=== PATIENT | female | born 1975 | race African-American/Black ===

== ENCOUNTER 2017-03-17 08:30 | Inpatient (IN) | payer OTHER ==
[2017-03-17 09:09] VITALS: BMI 29.1
--- NOTE | 2017-03-17 13:11 | HP ---
CIWA Score - CIWA Score Nausea/Vomitin-Mild Nausea/No Vomiting Muscle Tremors: 4-Moderate,w/Arms Extend Anxiety: 3 Agitation: 4-Moderately Restless Paroxysmal Sweats: 3 Orientation: 0-Oriented Tacttile Disturbances: 0-None Auditory Disturbances: 0-None Visual Disturbances: 0-None Headache: 1-Very Mild CIWA-Ar Total Score: 16 Admission ROS BHS - HPI Chief Complaint: I dont want to drink anymore and need to stop. My family is tired and I need to changes Allergies/Adverse Reactions: Allergies Allergy/AdvReac Type Severity Reaction Status Date / Time Penicillins Allergy Intermediate Verified 03/17/17 09:47 eggs Allergy Intermediate Difficulty Uncoded 03/17/17 09:47 Breathing History of Present Illness: pt is a 41yr old female with a history of alcohol dependence seeking detox for treatment. Exam Limitations: No Limitations - Ebola screening Have you traveled outside of the country in the last 21 days: No Have you had contact with anyone from an Ebola affected area: No Have you been sick,other than usual withdrawal symptoms: No Do you have a fever: No - Review of Systems Constitutional: Chills, Diaphoresis, Night Sweats, Changes in sleep EENT: reports: Tearing, Nose Congestion Respiratory: reports: No Symptoms reported Cardiac: reports: Syncope (last blackout a week ago) GI: reports: Poor Fluid Intake, Indigestion : reports: No Symptoms Reported Musculoskeletal: reports: Back Pain Integumentary: reports: Flushing, Sweating, Other (pt has a h/o dry skin eczema. ) Neuro: reports: Headache, Tingling, Tremors Endocrine: reports: Flushing, Intolerance to Cold, Intolerance to Heat Hematology: reports: No Symptoms Reported Psychiatric: reports: Judgement Intact, Mood/Affect Appropiate, Orientated x3, Agitated, Anxious Other Systems: Reviewed and Negative Patient History - Patient Medical History Hx Anemia: No Hx Asthma: Yes Hx Chronic Obstructive Pulmonary Disease (COPD): No Hx Cancer: No Hx Cardiac Disorders: No Hx Congestive Heart Failure: No Hx Hypertension: No Hx Hypercholesterolemia: No Hx Pacemaker: No HX Cerebrovascular Accident: No Hx Seizures: No Hx Dementia: No Hx Diabetes: No Hx Gastrointestinal Disorders: No Hx Liver Disease: No Hx Genitourinary Disorders: No Hx Sexually Transmitted Disorders: No Hx Renal Disease (ESRD): No Hx Thyroid Disease: No Hx Human Immunodeficiency Virus (HIV): No (negative) Hx Hepatitis C: No (negative) Hx Depression: Yes Hx Suicide Attempt: Yes (at age 14;denies any S/H ideation today) Hx Bipolar Disorder: No Hx Schizophrenia: No - Patient Surgical History Past Surgical History: No Other Surgical History: fibroid removed 03/2014/partial hysterectomy - PPD History Previous Implant?: Yes Documented Results: Negative w/o proof Implanted On Prior [facility] Admission?: No PPD to be Administered?: Yes - Reproductive History Patient is a Female of Child Bearing Age (11 -55 yrs old): No LMP comment: 2013 Patient : No - Smoking Cessation Smoking history: Current every day smoker Have you smoked in the past 12 months: Yes Aproximately how many cigarettes per day: 2 Hx Chewing Tobacco Use: No Initiated information on smoking cessation: Yes 'Breaking Loose' booklet given: 03/17/17 - Substance & Tx. History Hx Alcohol Use: Yes Hx Substance Use: Yes Substance Use Type: Alcohol, Marijuana Hx Substance Use Treatment: No - Substances Abused Alcohol Route: Oral Amount used: vodka(1-2 pints) Age of first use: 11 Date of Last Use: 03/16/17 Marijuana/Hashish Route: Inhalation Frequency: Daily Amount used: $250 Age of first use: 17 Date of Last Use: 02/24/17 Family Disease History - Family Disease History Family Disease History: Diabetes: Grandparent (dialysis ), Other: Mother (alcohol dependence), Brother (alcohol/cocaine dependence) Admission Physical Exam S - Vital Signs Vital Signs: Vital Signs - 24 hr 03/17/17 09:06 Temperature 98.3 F Pulse Rate 90 Respiratory 18 Rate Blood Pressure 130/96 - Physical General Appearance: Yes: Appropriately Dressed, Moderate Distress, Tremorous, Irritable, Sweating, Anxious HEENTM: Yes: Hearing grossly Normal, Normocephalic, Normal Voice Respiratory: Yes: Lungs Clear, Normal Breath Sounds, No Respiratory Distress Neck: Yes: No masses,lesions,Nodules Breast: Yes: Within Normal Limits Cardiology: Yes: Regular Rhythm, Regular Rate, S1, S2 Abdominal: Yes: Normal Bowel Sounds, Non Tender, Soft Genitourinary: Yes: Within Normal Limits Back: Yes: Normal Inspection Musculoskeletal: Yes: full range of Motion, Back pain Extremities: Yes: Normal Capillary Refill, Normal Inspection, Tremors Neurological: Yes: Fully Oriented, Alert, Normal Response Integumentary: Yes: Normal Color, Diaphoresis Lymphatic: Yes: Within Normal Limits - Diagnostic (1) Alcohol dependence with uncomplicated withdrawal Current Visit: Yes Status: Chronic (2) Asthma Current Visit: Yes Status: Chronic Qualifiers: Asthma severity: mild intermittent Asthma complication type: uncomplicated Qualified Code(s): J45.20 - Mild intermittent asthma, uncomplicated (3) Eczema Current Visit: Yes Status: Chronic Qualifiers: Eczema type: unspecified Qualified Code(s): L30.9 - Dermatitis, unspecified Cleared for Admission S - Detox or Rehab [facility] Level of Care: Medically Managed Detox Regimen/Protocol: Librium S Breath Alcohol Content Breath Alcohol Content: 0 Urine Pregancy Test - Result Urine Test Results: Negative- NO Line Present Urine Drug Screen - Results Drug Screen Negative: No Urine Drug Screen Results: THC-Marijuana
[2017-03-17] MEDS ORDERED: hydrOXYzine PAMOATE 50 MG CAPSULE (FP) PO PRN (13:19)
[2017-03-17] MEDS ORDERED: ACETAMINOPHEN 325 MG TABLET (FP) PO PRN (13:19)
[2017-03-17] MEDS ORDERED: guaiFENesin/D-METHORPHAN HB 10 ML UNIT-DOSE CUPS PO PRN (13:19)
[2017-03-17] MEDS ORDERED: IBUPROFEN 400 MG TABLET (FP) PO PRN (13:19)
[2017-03-17] MEDS ORDERED: NICOTINE POLACRILEX 4 MG GUM BC PRN (13:19)
[2017-03-17] MEDS ORDERED: MAGNESIUM CITRATE 300 ML BOTTLE PO PRN (13:19)
[2017-03-17] MEDS ORDERED: chlordiazePOXIDE HCL 25 MG CAPSULE PO PRN (13:19)
[2017-03-17] MEDS ORDERED: MAG HYDROX/AL HYDROX/SIMETH 30 ML UNIT-DOSE CUP PO PRN (13:19)
[2017-03-17] MEDS ORDERED: MENTHOL/PHENOL 1 EACH UD MM PRN (13:19)
[2017-03-17] MEDS ORDERED: MAGNESIUM HYDROX 2400MG/30ML ORAL SUSPENSION 30 ML CUP PO PRN (13:19)
[2017-03-17] MEDS ORDERED: diphenhydrAMINE HCL 50 MG CAPSULE PO PRN (13:19)
[2017-03-17] MEDS ORDERED: P-EPHED 60MG/TRIPROLIDI 2.5MG TABLET PO PRN (13:19)
[2017-03-17] MEDS ORDERED: LOPERAMIDE HCL 2 MG CAPSULE PO PRN (13:19)
[2017-03-17] MEDS ORDERED: ALBUTEROL SO4 6.7 GM HFA INHALER IH PRN (13:21)
[2017-03-17] MEDS ORDERED: chlordiazePOXIDE HCL 25 MG CAPSULE PO ONE (14:30)
--- NOTE | 2017-03-17 16:17 | EKG ---
Test Reason : Blood Pressure : / mmHG Vent. Rate : 071 BPM Atrial Rate : 071 BPM P-R Int : 186 ms QRS Dur : 080 ms QT Int : 406 ms P-R-T Axes : 072 063 037 degrees QTc Int : 441 ms NORMAL SINUS RHYTHM WITH SINUS ARRHYTHMIA T WAVE ABNORMALITY, CONSIDER ANTERIOR ISCHEMIA ABNORMAL ECG NO PREVIOUS ECGS AVAILABLE Confirmed by MD ALTHEA, FRANK ([id number]) on 03/17/2017 4:17:04 PM Referred By: Alejandro Renee Confirmed By:FRANK OH MD
[2017-03-17] MEDS: chlordiazePOXIDE HCL 25 MG CAPSULE PO SCH ×2 (17:01→22:50)
[2017-03-17 18:25] LABS: URINE APPEARANCE CLEAR; URINE BILIRUBIN NEGATIVE (NEGATIVE); URINE BLOOD NEGATIVE (NEGATIVE); URINE COLOR YELLOW; URINE GLUCOSE (UA) NEGATIVE (NEGATIVE); URINE KETONE NEGATIVE (NEGATIVE); URINE LEUK ESTERASE NEGATIVE (NEGATIVE); URINE NITRITE NEGATIVE (NEGATIVE); URINE PROTEIN NEGATIVE (NEGATIVE)
[2017-03-17] MEDS: MINERAL OIL/PETROLAT/WATER TOPICAL CREAM 113 GM JAR TP PRN (21:16)
[2017-03-17] MEDS: COLLOIDAL OATMEAL 1 BAR EACH TP PRN (21:16)
[2017-03-17] MEDS: THIAMINE HCL 100 MG TABLET (FP) PO SCH (22:50)
[2017-03-18] MEDS: chlordiazePOXIDE HCL 25 MG CAPSULE PO SCH ×4 (06:01→22:45)
[2017-03-18 10:38] LABS: MCH 30.5 pg (25.7-33.7); MEAN CELL VOLUME 92.5 fl (80-96); MEAN PLT VOLUME 9.5 fl (7.5-11.1); PLATELET COUNT 336 K/MM3 (134-434); RDW 13.5 % (11.6-15.6); WHITE BLOOD COUNT 10.5 K/mm3 (4.0-10.0)
[2017-03-18 10:52] LABS: ANION GAP 6 (8-16); CALCIUM 9.1 mg/dL (8.5-10.1); CO2 29 mmol/L (21-32); GLUCOSE,RANDOM 63 mg/dL (74-106); SGPT/ALT 27 U/L (12-78)
[2017-03-18 10:54] LABS: ALK PHOS 45 U/L (45-117); BILIRUBIN,TOTAL 0.5 mg/dL (0.2-1.0); CREATININE 0.8 mg/dL (0.55-1.02); SGOT/AST 18 U/L (15-37); TOT PROT 7.7 g/dl (6.4-8.2)
[2017-03-18] MEDS: PRENATAL VITAMINS W/ FOLIC ACID TABLET (FP) PO SCH (11:02)
[2017-03-18] MEDS: NICOTINE 21 MG/24 HOURS TOPICAL PATCH TD SCH (11:03)
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
[2017-03-18] MEDS: GABAPENTIN 300 MG CAPSULE (FP) PO SCH ×2 (13:41→22:45)
[2017-03-18] MEDS: PARoxetine HCL 10 MG TABLET (FP) PO SCH (13:41)
--- NOTE | 2017-03-18 16:11 | PN ---
S CIWA - CIWA Score Nausea/Vomitin Muscle Tremors: 3 Anxiety: 3 Agitation: 2 Paroxysmal Sweats: 1-Minimal Palms Moist Orientation: 0-Oriented Tacttile Disturbances: 1-Very Mild Itch/Numbness Auditory Disturbances: 1-Very Mild Visual Disturbances: 1-Very Mild Sensitivity Headache: 2-Mild CIWA-Ar Total Score: 17 BHS Progress Note (SOAP) Subjective: ALERT,IRRITABLE,ANXIOUS,INTERRUPTED SLEEP Objective: 03/18/17 16:09 Vital Signs Temperature 97.9 F 03/18/17 15:02 Pulse Rate 96 H 03/18/17 15:02 Respiratory Rate 16 03/18/17 15:02 Blood Pressure 127/70 03/18/17 15:02 O2 Sat by Pulse Oximetry (%) EKG NSR,INVERTED T IN V2,V3 NO CHEST PAIN,NO SOB,NO DIZZINESS Laboratory Last Values WBC 10.5 K/mm3 (4.0-10.0) H 03/18/17 06:10 RBC 4.42 M/mm3 (3.60-5.2) 03/18/17 06:10 Hgb 13.5 GM/dL (10.7-15.3) 03/18/17 06:10 Hct 40.9 % (32.4-45.2) 03/18/17 06:10 MCV 92.5 fl (80-96) 03/18/17 06:10 MCH 30.5 pg (25.7-33.7) 03/18/17 06:10 MCHC 33.0 g/dl (32.0-36.0) 03/18/17 06:10 RDW 13.5 % (11.6-15.6) 03/18/17 06:10 Plt Count 336 K/MM3 (134-434) 03/18/17 06:10 MPV 9.5 fl (7.5-11.1) 03/18/17 06:10 Sodium 138 mmol/L (136-145) 03/18/17 06:10 Potassium 4.4 mmol/L (3.5-5.1) 03/18/17 06:10 Chloride 103 mmol/L (98-107) 03/18/17 06:10 Carbon Dioxide 29 mmol/L (21-32) 03/18/17 06:10 Anion Gap 6 (8-16) L 03/18/17 06:10 BUN 14 mg/dL (7-18) 03/18/17 06:10 Creatinine 0.8 mg/dL (0.55-1.02) 03/18/17 06:10 Creat Clearance w eGFR > 60 (>60) 03/18/17 06:10 Random Glucose 63 mg/dL (74-106) L 03/18/17 06:10 Calcium 9.1 mg/dL (8.5-10.1) 03/18/17 06:10 Total Bilirubin 0.5 mg/dL (0.2-1.0) 03/18/17 06:10 AST 18 U/L (15-37) 03/18/17 06:10 ALT 27 U/L (12-78) 03/18/17 06:10 Alkaline Phosphatase 45 U/L (45-117) 03/18/17 06:10 Total Protein 7.7 g/dl (6.4-8.2) 03/18/17 06:10 Albumin 4.0 g/dl (3.4-5.0) 03/18/17 06:10 Urine Color Yellow 03/17/17 17:50 Urine Appearance Clear 03/17/17 17:50 Urine pH 6.0 (5.0-8.0) 03/17/17 17:50 Ur Specific [place] 1.020 (1.005-1.025) 03/17/17 17:50 Urine Protein Negative (NEGATIVE) 03/17/17 17:50 Urine Glucose (UA) Negative (NEGATIVE) 03/17/17 17:50 Urine Ketones Negative (NEGATIVE) 03/17/17 17:50 Urine Blood Negative (NEGATIVE) 03/17/17 17:50 Urine Nitrite Negative (NEGATIVE) 03/17/17 17:50 Urine Bilirubin Negative (NEGATIVE) 03/17/17 17:50 Urine Urobilinogen 2.0 mg/dL (0.2-1.0) H 03/17/17 17:50 Ur Leukocyte Esterase Negative (NEGATIVE) 03/17/17 17:50 RPR Titer Nonreactive (NONREACTIVE) 03/18/17 06:10 Assessment: 03/18/17 16:11 WITHDRAWAL SYMPTOM Plan: CONTINUE DETOX
[2017-03-18] MEDS ORDERED: traZODone HCL 50 MG TABLET (FP) PO SCH (22:00)
[2017-03-18] MEDS: THIAMINE HCL 100 MG TABLET (FP) PO SCH (22:46)
[2017-03-18] MEDS: traZODone HCL 50 MG TABLET (FP) PO SCH (22:46)
[2017-03-19] MEDS: chlordiazePOXIDE HCL 25 MG CAPSULE PO SCH ×2 (06:07→10:47)
[2017-03-19] MEDS: GABAPENTIN 300 MG CAPSULE (FP) PO SCH ×3 (06:53→22:34)
[2017-03-19] MEDS: PRENATAL VITAMINS W/ FOLIC ACID TABLET (FP) PO SCH (10:47)
[2017-03-19] MEDS: PARoxetine HCL 10 MG TABLET (FP) PO SCH (10:47)
[2017-03-19] MEDS: NICOTINE 21 MG/24 HOURS TOPICAL PATCH TD SCH (10:48)
[2017-03-19] MEDS: MINERAL OIL/PETROLAT/WATER TOPICAL CREAM 113 GM JAR TP PRN (10:49)
[2017-03-19] MEDS: COLLOIDAL OATMEAL 1 BAR EACH TP PRN (10:50)
--- NOTE | 2017-03-19 15:34 | PN ---
S CIWA - CIWA Score Nausea/Vomitin Muscle Tremors: 3 Anxiety: 3 Agitation: 3 Paroxysmal Sweats: 1-Minimal Palms Moist Orientation: 0-Oriented Tacttile Disturbances: 1-Very Mild Itch/Numbness Auditory Disturbances: 1-Very Mild Visual Disturbances: 1-Very Mild Sensitivity Headache: 2-Mild CIWA-Ar Total Score: 18 S Progress Note (SOAP) Subjective: ALERT,IRRITABLE,ANXIOUS,INTERRUPTED SLEEP,TREMOR Objective: 03/19/17 15:32 Vital Signs Temperature 97.9 F 03/19/17 14:13 Pulse Rate 87 03/19/17 14:13 Respiratory Rate 18 03/19/17 14:13 Blood Pressure 121/81 03/19/17 14:13 O2 Sat by Pulse Oximetry (%) Laboratory Last Values WBC 10.5 K/mm3 (4.0-10.0) H 03/18/17 06:10 RBC 4.42 M/mm3 (3.60-5.2) 03/18/17 06:10 Hgb 13.5 GM/dL (10.7-15.3) 03/18/17 06:10 Hct 40.9 % (32.4-45.2) 03/18/17 06:10 MCV 92.5 fl (80-96) 03/18/17 06:10 MCH 30.5 pg (25.7-33.7) 03/18/17 06:10 MCHC 33.0 g/dl (32.0-36.0) 03/18/17 06:10 RDW 13.5 % (11.6-15.6) 03/18/17 06:10 Plt Count 336 K/MM3 (134-434) 03/18/17 06:10 MPV 9.5 fl (7.5-11.1) 03/18/17 06:10 Sodium 138 mmol/L (136-145) 03/18/17 06:10 Potassium 4.4 mmol/L (3.5-5.1) 03/18/17 06:10 Chloride 103 mmol/L (98-107) 03/18/17 06:10 Carbon Dioxide 29 mmol/L (21-32) 03/18/17 06:10 Anion Gap 6 (8-16) L 03/18/17 06:10 BUN 14 mg/dL (7-18) 03/18/17 06:10 Creatinine 0.8 mg/dL (0.55-1.02) 03/18/17 06:10 Creat Clearance w eGFR > 60 (>60) 03/18/17 06:10 Random Glucose 63 mg/dL (74-106) L 03/18/17 06:10 Calcium 9.1 mg/dL (8.5-10.1) 03/18/17 06:10 Total Bilirubin 0.5 mg/dL (0.2-1.0) 03/18/17 06:10 AST 18 U/L (15-37) 03/18/17 06:10 ALT 27 U/L (12-78) 03/18/17 06:10 Alkaline Phosphatase 45 U/L (45-117) 03/18/17 06:10 Total Protein 7.7 g/dl (6.4-8.2) 03/18/17 06:10 Albumin 4.0 g/dl (3.4-5.0) 03/18/17 06:10 Urine Color Yellow 03/17/17 17:50 Urine Appearance Clear 03/17/17 17:50 Urine pH 6.0 (5.0-8.0) 03/17/17 17:50 Ur Specific [place] 1.020 (1.005-1.025) 03/17/17 17:50 Urine Protein Negative (NEGATIVE) 03/17/17 17:50 Urine Glucose (UA) Negative (NEGATIVE) 03/17/17 17:50 Urine Ketones Negative (NEGATIVE) 03/17/17 17:50 Urine Blood Negative (NEGATIVE) 03/17/17 17:50 Urine Nitrite Negative (NEGATIVE) 03/17/17 17:50 Urine Bilirubin Negative (NEGATIVE) 03/17/17 17:50 Urine Urobilinogen 2.0 mg/dL (0.2-1.0) H 03/17/17 17:50 Ur Leukocyte Esterase Negative (NEGATIVE) 03/17/17 17:50 RPR Titer Nonreactive (NONREACTIVE) 03/18/17 06:10 Assessment: 03/19/17 15:33 WITHDRAWAL SYMPTOM Plan: CONTINUE DETOX
[2017-03-19] MEDS: chlordiazePOXIDE 5 MG CAPSULE PO SCH ×2 (17:09→22:34)
[2017-03-19] MEDS: THIAMINE HCL 100 MG TABLET (FP) PO SCH (22:34)
[2017-03-19] MEDS: traZODone HCL 50 MG TABLET (FP) PO SCH (22:34)
[2017-03-20] MEDS: chlordiazePOXIDE 5 MG CAPSULE PO SCH ×2 (05:49→10:35)
[2017-03-20] MEDS: GABAPENTIN 300 MG CAPSULE (FP) PO SCH ×3 (05:50→22:38)
[2017-03-20] MEDS: PRENATAL VITAMINS W/ FOLIC ACID TABLET (FP) PO SCH (10:35)
[2017-03-20] MEDS: PARoxetine HCL 10 MG TABLET (FP) PO SCH (10:35)
[2017-03-20] MEDS: NICOTINE 21 MG/24 HOURS TOPICAL PATCH TD SCH (10:37)
--- NOTE | 2017-03-20 11:13 | PN ---
BHS Progress Note (SOAP) Subjective: I am feeling much better little sweats Objective: 03/20/17 11:13 Vital Signs Temperature 98.1 F 03/20/17 10:00 Pulse Rate 93 H 03/20/17 10:00 Respiratory Rate 20 03/20/17 10:00 Blood Pressure 124/74 03/20/17 10:00 O2 Sat by Pulse Oximetry (%) awake/alert ambulating no acute distress Assessment: 03/20/17 11:13 withdrawal sx Plan: continue detox increase fluids d/c in am
[2017-03-20] MEDS: chlordiazePOXIDE HCL 10 MG CAPSULE PO SCH ×2 (18:23→22:38)
[2017-03-20] MEDS: traZODone HCL 50 MG TABLET (FP) PO SCH (22:38)
[2017-03-20] MEDS: THIAMINE HCL 100 MG TABLET (FP) PO SCH (22:38)
[2017-03-21] MEDS: chlordiazePOXIDE HCL 10 MG CAPSULE PO SCH ×2 (06:22→10:59)
[2017-03-21] MEDS: GABAPENTIN 300 MG CAPSULE (FP) PO SCH (06:22)
--- NOTE | 2017-03-21 09:13 | DS ---
[facility] Detox Discharge Summary Admission Date: 03/17/17 Discharge Date: 03/21/17 - History Present History: Alcohol Dependence - Physical Exam Results Vital Signs: Vital Signs Temperature 98.2 F 03/21/17 06:00 Pulse Rate 82 03/21/17 06:00 Respiratory Rate 18 03/21/17 06:00 Blood Pressure 102/63 03/21/17 06:00 O2 Sat by Pulse Oximetry (%) - Treatment Hospital Course: Detox Protocol Followed, Detoxed Safely, Responded well, Discharged Condition Good, Rehab Referral Accepted - Medication Discharge Medications: Ambulatory Orders Albuterol Sulfate Inhaler - [Ventolin Hfa Inhaler -] 1 - 2 inh PO QID PRN Gabapentin [Neurontin] 600 mg PO TID 03/17/17 Paroxetine HCl [Paxil -] 10 mg PO DAILY 03/17/17 Gabapentin [Neurontin -] 600 mg PO TID #120 capsule 03/18/17 Paroxetine HCl [Paxil -] 10 mg PO DAILY #30 tablet 03/18/17 - Diagnosis (1) Alcohol dependence with uncomplicated withdrawal Current Visit: Yes Status: Chronic (2) Asthma Current Visit: Yes Status: Chronic Qualifiers: Asthma severity: mild intermittent Asthma complication type: uncomplicated Qualified Code(s): J45.20 - Mild intermittent asthma, uncomplicated (3) Eczema Current Visit: Yes Status: Chronic Qualifiers: Eczema type: unspecified Qualified Code(s): L30.9 - Dermatitis, unspecified - AMA Did Patient Leave Against Medical Advice: No ([facility])
[2017-03-21 10:35] VITALS: BP 121/74; PULSE 84; TEMP 98.1
[2017-03-21] MEDS: PARoxetine HCL 10 MG TABLET (FP) PO SCH (10:58)
[2017-03-21] MEDS: PRENATAL VITAMINS W/ FOLIC ACID TABLET (FP) PO SCH (10:59)
[2017-03-21] MEDS: NICOTINE 21 MG/24 HOURS TOPICAL PATCH TD SCH (10:59)
[2017-03-21] MEDS: MINERAL OIL/PETROLAT/WATER TOPICAL CREAM 113 GM JAR TP PRN (11:03)
[2017-03-21] MEDS: COLLOIDAL OATMEAL 1 BAR EACH TP PRN (11:04)
== END 2017-03-21 11:25 | disposition other institution (70) | DRG 775 ==
LOC: YASAS 08:30 → Y6N 12:51
PROVIDERS: ADMIT Internal Medicine Addiction Medicine; ATTEND Internal Medicine Addiction Medicine
PROC: HZ2ZZZZ Detoxification Services for Substance Abuse Treatment (ICD-10-PCS; principal; 2017-03-21)
DX: F10.230 Alcohol dependence with withdrawal, uncomplicated (principal); F12.20 Cannabis dependence, uncomplicated; F17.210 Nicotine dependence, cigarettes, uncomplicated; F19.24 Other psychoactive substance dependence with psychoactive substance-induced mood disorder; F31.9 Bipolar disorder, unspecified; F60.9 Personality disorder, unspecified; F43.10 Post-traumatic stress disorder, unspecified; G47.00 Insomnia, unspecified; Z59.0 Homelessness
CPT/HCPCS: 36415; 80053; 81003; 85027; 86593; 93005; 93010

== ENCOUNTER 2017-03-21 11:18 | Inpatient (IN) | payer OTHER ==
[2017-03-21] MEDS ORDERED: ACETAMINOPHEN 325 MG TABLET (FP) PO PRN (11:38)
[2017-03-21] MEDS ORDERED: MAGNESIUM CITRATE 300 ML BOTTLE PO PRN (11:38)
[2017-03-21] MEDS ORDERED: P-EPHED 60MG/TRIPROLIDI 2.5MG TABLET PO PRN (11:38)
[2017-03-21] MEDS ORDERED: guaiFENesin/D-METHORPHAN HB 10 ML UNIT-DOSE CUPS PO PRN (11:38)
[2017-03-21] MEDS ORDERED: diphenhydrAMINE HCL 50 MG CAPSULE PO PRN (11:38)
[2017-03-21] MEDS ORDERED: MENTHOL/PHENOL 1 EACH UD MM PRN (11:38)
[2017-03-21] MEDS ORDERED: LOPERAMIDE HCL 2 MG CAPSULE PO PRN (11:38)
[2017-03-21] MEDS ORDERED: MAG HYDROX/AL HYDROX/SIMETH 30 ML UNIT-DOSE CUP PO PRN (11:38)
[2017-03-21] MEDS ORDERED: IBUPROFEN 400 MG TABLET (FP) PO PRN (11:38)
[2017-03-21] MEDS ORDERED: MAGNESIUM HYDROX 2400MG/30ML ORAL SUSPENSION 30 ML CUP PO PRN (11:38)
[2017-03-21] MEDS ORDERED: MINERAL OIL/PETROLAT/WATER TOPICAL CREAM 454 GM JAR TP PRN (11:40)
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
[2017-03-21] MEDS ORDERED: PNEUMOC 13-VAL CONJ-DIP CRM/PF 0.5 ML DISP.SYRIN IM ONE (12:53)
[2017-03-21] MEDS: GABAPENTIN 300 MG CAPSULE (FP) PO SCH ×2 (13:35→21:19)
[2017-03-21] MEDS: COLLOIDAL OATMEAL 1 BAR EACH TP PRN (13:35)
[2017-03-21] MEDS: hydrOXYzine PAMOATE 50 MG CAPSULE (FP) PO PRN ×2 (13:35→21:20)
[2017-03-21] MEDS: MINERAL OIL/PETROLAT/WATER TOPICAL CREAM 113 GM JAR TP PRN (13:37)
--- NOTE | 2017-03-21 16:23 | HP ---
[facility] Rehab Assess/Revision - Admission History Admitted to Rehab from: [facility] Date of Admission to Rehab: 03/21/17 - Vital signs Vital Signs: Vital Signs Period Temp Pulse Resp BP Sys/Chen Pulse Ox Last 24 Hr 99.4 F 100 18 106/69 - Findings Detox History & Physical reviewed: Yes Concur with findings: Yes Comments/Additional Findings: transferred from detox to rehab admission as per protocol
[2017-03-21] MEDS: THIAMINE HCL 100 MG TABLET (FP) PO SCH (21:19)
[2017-03-21] MEDS: traZODone HCL 50 MG TABLET (FP) PO SCH (21:19)
[2017-03-22] MEDS: GABAPENTIN 300 MG CAPSULE (FP) PO SCH ×3 (06:49→21:07)
[2017-03-22] MEDS: hydrOXYzine PAMOATE 50 MG CAPSULE (FP) PO PRN ×2 (06:50→13:44)
[2017-03-22] MEDS: NICOTINE 21 MG/24 HOURS TOPICAL PATCH TD SCH (09:49)
[2017-03-22] MEDS: PARoxetine HCL 20 MG TABLET (FP) PO SCH (09:50)
[2017-03-22] MEDS: PRENATAL VITAMINS W/ FOLIC ACID TABLET (FP) PO SCH (09:50)
[2017-03-22] MEDS ORDERED: PNEUMOCOCCAL 23 VACCINE 0.5 ML VIAL IM ONE (12:00)
[2017-03-22] MEDS: traZODone HCL 50 MG TABLET (FP) PO SCH (21:07)
[2017-03-22] MEDS: THIAMINE HCL 100 MG TABLET (FP) PO SCH (21:07)
[2017-03-23] MEDS: GABAPENTIN 300 MG CAPSULE (FP) PO SCH ×3 (06:32→21:03)
[2017-03-23] MEDS: NICOTINE 21 MG/24 HOURS TOPICAL PATCH TD SCH (09:34)
[2017-03-23] MEDS: PRENATAL VITAMINS W/ FOLIC ACID TABLET (FP) PO SCH (09:35)
[2017-03-23] MEDS: PARoxetine HCL 20 MG TABLET (FP) PO SCH (09:35)
[2017-03-23] MEDS: hydrOXYzine PAMOATE 50 MG CAPSULE (FP) PO PRN (09:36)
[2017-03-23] MEDS: THIAMINE HCL 100 MG TABLET (FP) PO SCH (21:03)
[2017-03-23] MEDS: traZODone HCL 50 MG TABLET (FP) PO SCH (21:03)
[2017-03-24] MEDS: GABAPENTIN 300 MG CAPSULE (FP) PO SCH ×3 (06:41→21:12)
[2017-03-24] MEDS: PRENATAL VITAMINS W/ FOLIC ACID TABLET (FP) PO SCH (09:53)
[2017-03-24] MEDS: NICOTINE 21 MG/24 HOURS TOPICAL PATCH TD SCH (09:54)
[2017-03-24] MEDS: PARoxetine HCL 20 MG TABLET (FP) PO SCH (09:54)
[2017-03-24] MEDS: NICOTINE POLACRILEX 4 MG GUM BUC PRN (09:54)
[2017-03-24] MEDS: hydrOXYzine PAMOATE 50 MG CAPSULE (FP) PO PRN (12:21)
[2017-03-24] MEDS ORDERED: PT OWN MED DRAWER 7, Y5N ONE (15:39)
--- NOTE | 2017-03-24 15:40 | PN ---
Psychiatric Progress Note Vital Signs: Vital Signs Period Temp Pulse Resp BP Sys/Chen Pulse Ox Last 24 Hr 98.3 F 78 18-18 130/79 Date of Session: 03/24/17 Chief Complaint:: Yang very nervious,anxious,Neurontin makes me drowsy. HPI: Patient addressed Alcohol and Cannabis dependence comorbid with Bipolar disorder,PTSD. ROS: BA,Eczema. Current Medications: Active Medications Generic Name Dose Route Start Last Admin Trade Name Freq PRN Reason Stop Dose Admin Acetaminophen 650 mg 03/21/17 11:38 Tylenol - PO Q4H PRN FEVER OR PAIN Al Hydroxide/Mg Hydroxide 30 ml 03/21/17 11:38 Mylanta Oral Suspension - PO Q6H PRN DYSPEPSIA Amitriptyline HCl 25 mg 03/24/17 22:00 Elavil - PO TID JONATHON Colloidal Oatmeal 1 applic 03/21/17 11:40 03/21/17 13:35 Aveeno Soap - TP 1 applic DAILY PRN Administration HYGEINE Diphenhydramine HCl 50 mg 03/21/17 11:38 Benadryl - PO HSMR1 PRN FOR ITCHING Eucalyptus/Menthol/Phenol/Sorbitol 1 each 03/21/17 11:38 Cepastat Lozenge - MM Q4H PRN SORE THROAT Gabapentin 300 mg 03/24/17 22:00 Neurontin - PO TID JONATHON Guaifenesin 10 ml 03/21/17 11:38 Robitussin Dm - PO Q6H PRN COUGH Hydroxyzine Pamoate 50 mg 03/21/17 11:38 03/24/17 12:21 Vistaril - PO 50 mg Q4H PRN Administration AGITATION Ibuprofen 400 mg 03/21/17 11:38 Motrin - PO Q6H PRN PAIN Loperamide HCl 4 mg 03/21/17 11:38 Imodium - PO Q6H PRN DIARRHEA Magnesium Hydroxide 30 ml 03/21/17 11:38 Milk Of Magnesia - PO DAILY PRN CONSTIPATION Multi-Ingredient Lotion 1 applic 03/21/17 12:04 03/21/17 13:37 Eucerin (Small Jar) - TP 1 applic BID PRN Administration DRY SKIN Nicotine 21 mg 03/22/17 10:00 03/24/17 09:54 Nicoderm Patch - TD 21 mg DAILY JONATHON Administration Nicotine Polacrilex 4 mg 03/21/17 11:38 03/24/17 09:54 Nicorette Gum - BUC 4 mg Q2H PRN Administration NICOTINE REPLACEMENT RX Paroxetine HCl 20 mg 03/22/17 10:00 03/24/17 09:54 Paxil - PO 20 mg DAILY JONATHON Administration Multivit/Folic Acid/Iron 1 tab 03/22/17 10:00 03/24/17 09:53 Vitamins (Sjr) - PO 1 tab DAILY JONATHON Administration Pseudoephedrine/Triprolidine 1 combo 03/21/17 11:38 Actifed - PO TID PRN NASAL CONGESTION Thiamine HCl 100 mg 03/21/17 22:00 03/23/17 21:03 Vitamin B1 - PO 100 mg HS JONATHON Administration Trazodone HCl 150 mg 03/21/17 22:00 03/23/17 21:03 Desyrel - PO 150 mg HS JONATHON Administration Current Side Effect: No Lab tests ordered: No Lab tests reviewed: Yes Provider note:: Chart was revuewed ,patient was seen,medication magament has been discussed with the patient .Properties of Elavil has been discussed with the patient including side effects,benefits and dose adjustment.Patient is willing to start ElaVIL 25 MG PO TID,Neurontin 600 mg po tid will be adjusted to 300 mg po tid. Supportive therapy provided. Total face to face time:: 25 Mental Status Exam - Mental Status Exam Alert and Oriented to: Time, Place, Person Cognitive Function: Grossly Intact Patient Appearance: Unkempt Mood: Anxious, Irritable Affect: Mood Congruent, Labile Patient Behavior: Cooperative Speech Pattern: Clear Voice Loudness: Normal Thought Process: Goal Oriented Thought Disorder: Not Present Hallucinations: Denies Suicidal Ideation: Denies Homicidal Ideation: Denies Insight/Judgement: Fair Sleep: Fair Appetite: Good Muscle strength/Tone: Normal Gait/Station: Normal Psychiatric Treatment Plan - Problem List (1) Marijuana dependence Current Visit: Yes (2) Nicotine dependence Current Visit: Yes (3) Substance induced mood disorder Current Visit: Yes (4) Asthma Current Visit: Yes Qualifiers: Asthma severity: mild intermittent Asthma complication type: uncomplicated Qualified Code(s): J45.20 - Mild intermittent asthma, uncomplicated (5) Eczema Current Visit: Yes Qualifiers: Eczema type: unspecified Qualified Code(s): L30.9 - Dermatitis, unspecified (6) Alcohol dependence Current Visit: Yes (7) PTSD (post-traumatic stress disorder) Current Visit: Yes
[2017-03-24] MEDS: AMITRIPTYLINE HCL 25 MG TABLET (FP) PO SCH (21:12)
[2017-03-24] MEDS: THIAMINE HCL 100 MG TABLET (FP) PO SCH (21:12)
[2017-03-24] MEDS: traZODone HCL 50 MG TABLET (FP) PO SCH (21:12)
[2017-03-24] MEDS: COLLOIDAL OATMEAL 1 BAR EACH TP PRN (21:15)
[2017-03-24] MEDS ORDERED: GABAPENTIN 300 MG CAPSULE (FP) PO SCH (22:00)
[2017-03-25] MEDS ORDERED: PT OWN MED DRAWER 7, Y5N ONE ×4 (05:58→21:11)
[2017-03-25] MEDS: GABAPENTIN 300 MG CAPSULE (FP) PO SCH ×3 (07:08→21:08)
[2017-03-25] MEDS: AMITRIPTYLINE HCL 25 MG TABLET (FP) PO SCH ×3 (07:08→21:10)
[2017-03-25] MEDS: MINERAL OIL/PETROLAT/WATER TOPICAL CREAM 113 GM JAR TP PRN (07:08)
[2017-03-25] MEDS: PRENATAL VITAMINS W/ FOLIC ACID TABLET (FP) PO SCH (09:33)
[2017-03-25] MEDS: PARoxetine HCL 20 MG TABLET (FP) PO SCH (09:33)
[2017-03-25] MEDS: NICOTINE 21 MG/24 HOURS TOPICAL PATCH TD SCH (09:33)
[2017-03-25] MEDS: NICOTINE POLACRILEX 4 MG GUM BUC PRN (09:35)
[2017-03-25] MEDS: THIAMINE HCL 100 MG TABLET (FP) PO SCH (21:08)
[2017-03-25] MEDS: traZODone HCL 50 MG TABLET (FP) PO SCH (21:08)
[2017-03-26] MEDS ORDERED: PT OWN MED DRAWER 7, Y5N ONE ×3 (05:31→23:15)
[2017-03-26] MEDS: AMITRIPTYLINE HCL 25 MG TABLET (FP) PO SCH ×3 (06:38→21:08)
[2017-03-26] MEDS: GABAPENTIN 300 MG CAPSULE (FP) PO SCH ×3 (06:39→21:08)
[2017-03-26] MEDS: NICOTINE 21 MG/24 HOURS TOPICAL PATCH TD SCH (09:37)
[2017-03-26] MEDS: PARoxetine HCL 20 MG TABLET (FP) PO SCH (09:37)
[2017-03-26] MEDS: PRENATAL VITAMINS W/ FOLIC ACID TABLET (FP) PO SCH (09:37)
[2017-03-26] MEDS: NICOTINE POLACRILEX 4 MG GUM BUC PRN (09:39)
[2017-03-26] MEDS: traZODone HCL 50 MG TABLET (FP) PO SCH (21:08)
[2017-03-26] MEDS: THIAMINE HCL 100 MG TABLET (FP) PO SCH (21:08)
[2017-03-27] MEDS ORDERED: PT OWN MED DRAWER 7, Y5N ONE ×4 (03:19→20:04)
[2017-03-27] MEDS: GABAPENTIN 300 MG CAPSULE (FP) PO SCH ×3 (06:29→21:03)
[2017-03-27] MEDS: AMITRIPTYLINE HCL 25 MG TABLET (FP) PO SCH ×3 (06:29→21:03)
[2017-03-27] MEDS: NICOTINE POLACRILEX 4 MG GUM BUC PRN ×2 (06:30→09:38)
[2017-03-27] MEDS: NICOTINE 21 MG/24 HOURS TOPICAL PATCH TD SCH (09:37)
[2017-03-27] MEDS: PRENATAL VITAMINS W/ FOLIC ACID TABLET (FP) PO SCH (09:37)
[2017-03-27] MEDS: PARoxetine HCL 20 MG TABLET (FP) PO SCH (09:37)
[2017-03-27] MEDS: THIAMINE HCL 100 MG TABLET (FP) PO SCH (21:03)
[2017-03-27] MEDS: traZODone HCL 50 MG TABLET (FP) PO SCH (21:04)
[2017-03-28] MEDS ORDERED: PT OWN MED DRAWER 7, Y5N ONE ×3 (03:12→18:57)
[2017-03-28] MEDS: GABAPENTIN 300 MG CAPSULE (FP) PO SCH ×3 (06:31→21:19)
[2017-03-28] MEDS: AMITRIPTYLINE HCL 25 MG TABLET (FP) PO SCH ×3 (06:31→21:18)
[2017-03-28] MEDS: PARoxetine HCL 20 MG TABLET (FP) PO SCH (10:02)
[2017-03-28] MEDS: PRENATAL VITAMINS W/ FOLIC ACID TABLET (FP) PO SCH (10:02)
[2017-03-28] MEDS: NICOTINE POLACRILEX 4 MG GUM BUC PRN ×2 (10:03→14:33)
[2017-03-28] MEDS: MINERAL OIL/PETROLAT/WATER TOPICAL CREAM 113 GM JAR TP PRN (10:03)
[2017-03-28] MEDS: NICOTINE 21 MG/24 HOURS TOPICAL PATCH TD SCH (10:05)
[2017-03-28] MEDS: traZODone HCL 50 MG TABLET (FP) PO SCH (21:18)
[2017-03-28] MEDS: THIAMINE HCL 100 MG TABLET (FP) PO SCH (21:19)
[2017-03-29] MEDS ORDERED: PT OWN MED DRAWER 7, Y5N ONE ×2 (03:17→12:50)
[2017-03-29] MEDS: GABAPENTIN 300 MG CAPSULE (FP) PO SCH ×3 (06:22→21:10)
[2017-03-29] MEDS: AMITRIPTYLINE HCL 25 MG TABLET (FP) PO SCH ×3 (06:22→21:11)
[2017-03-29] MEDS: COLLOIDAL OATMEAL 1 BAR EACH TP PRN (06:23)
[2017-03-29] MEDS: PRENATAL VITAMINS W/ FOLIC ACID TABLET (FP) PO SCH (09:56)
[2017-03-29] MEDS: PARoxetine HCL 20 MG TABLET (FP) PO SCH (09:56)
[2017-03-29] MEDS: NICOTINE 21 MG/24 HOURS TOPICAL PATCH TD SCH (09:57)
[2017-03-29] MEDS: THIAMINE HCL 100 MG TABLET (FP) PO SCH (21:10)
[2017-03-29] MEDS: traZODone HCL 50 MG TABLET (FP) PO SCH (21:10)
[2017-03-30] MEDS: GABAPENTIN 300 MG CAPSULE (FP) PO SCH ×3 (06:13→21:02)
[2017-03-30] MEDS: AMITRIPTYLINE HCL 25 MG TABLET (FP) PO SCH ×3 (06:13→21:02)
[2017-03-30] MEDS: NICOTINE POLACRILEX 4 MG GUM BUC PRN ×2 (06:14→09:39)
[2017-03-30] MEDS: PRENATAL VITAMINS W/ FOLIC ACID TABLET (FP) PO SCH (09:38)
[2017-03-30] MEDS: NICOTINE 21 MG/24 HOURS TOPICAL PATCH TD SCH (09:38)
[2017-03-30] MEDS: PARoxetine HCL 20 MG TABLET (FP) PO SCH (09:39)
[2017-03-30] MEDS ORDERED: PT OWN MED DRAWER 7, Y5N ONE ×2 (12:51→21:00)
[2017-03-30] MEDS: THIAMINE HCL 100 MG TABLET (FP) PO SCH (21:02)
[2017-03-30] MEDS: traZODone HCL 50 MG TABLET (FP) PO SCH (21:02)
[2017-03-31] MEDS ORDERED: PT OWN MED DRAWER 7, Y5N ONE ×3 (00:08→12:28)
[2017-03-31] MEDS: AMITRIPTYLINE HCL 25 MG TABLET (FP) PO SCH ×3 (06:30→21:12)
[2017-03-31] MEDS: GABAPENTIN 300 MG CAPSULE (FP) PO SCH ×3 (06:30→21:12)
[2017-03-31] MEDS: PRENATAL VITAMINS W/ FOLIC ACID TABLET (FP) PO SCH (09:54)
[2017-03-31] MEDS: MINERAL OIL/PETROLAT/WATER TOPICAL CREAM 113 GM JAR TP PRN (09:54)
[2017-03-31] MEDS: PARoxetine HCL 20 MG TABLET (FP) PO SCH (09:54)
[2017-03-31] MEDS: NICOTINE POLACRILEX 4 MG GUM BUC PRN (09:55)
[2017-03-31] MEDS: NICOTINE 21 MG/24 HOURS TOPICAL PATCH TD SCH (09:55)
[2017-03-31] MEDS: hydrOXYzine PAMOATE 50 MG CAPSULE (FP) PO PRN (09:56)
[2017-03-31] MEDS: traZODone HCL 50 MG TABLET (FP) PO SCH (21:12)
[2017-03-31] MEDS: THIAMINE HCL 100 MG TABLET (FP) PO SCH (21:12)
[2017-04-01] MEDS: AMITRIPTYLINE HCL 25 MG TABLET (FP) PO SCH ×3 (06:19→21:07)
[2017-04-01] MEDS: GABAPENTIN 300 MG CAPSULE (FP) PO SCH ×3 (06:19→21:07)
[2017-04-01] MEDS: NICOTINE POLACRILEX 4 MG GUM BUC PRN ×2 (06:21→09:37)
[2017-04-01] MEDS: NICOTINE 21 MG/24 HOURS TOPICAL PATCH TD SCH (09:36)
[2017-04-01] MEDS: PRENATAL VITAMINS W/ FOLIC ACID TABLET (FP) PO SCH (09:37)
[2017-04-01] MEDS: PARoxetine HCL 20 MG TABLET (FP) PO SCH (09:37)
[2017-04-01] MEDS: traZODone HCL 50 MG TABLET (FP) PO SCH (21:07)
[2017-04-01] MEDS: THIAMINE HCL 100 MG TABLET (FP) PO SCH (21:07)
[2017-04-02] MEDS: AMITRIPTYLINE HCL 25 MG TABLET (FP) PO SCH ×3 (06:27→21:00)
[2017-04-02] MEDS: GABAPENTIN 300 MG CAPSULE (FP) PO SCH ×3 (06:27→20:59)
[2017-04-02] MEDS: NICOTINE POLACRILEX 4 MG GUM BUC PRN ×2 (06:28→09:39)
[2017-04-02] MEDS: NICOTINE 21 MG/24 HOURS TOPICAL PATCH TD SCH (09:37)
[2017-04-02] MEDS: PARoxetine HCL 20 MG TABLET (FP) PO SCH (09:38)
[2017-04-02] MEDS: PRENATAL VITAMINS W/ FOLIC ACID TABLET (FP) PO SCH (09:38)
[2017-04-02] MEDS: COLLOIDAL OATMEAL 1 BAR EACH TP PRN (16:06)
[2017-04-02] MEDS: THIAMINE HCL 100 MG TABLET (FP) PO SCH (20:59)
[2017-04-02] MEDS: traZODone HCL 50 MG TABLET (FP) PO SCH (21:00)
[2017-04-03] MEDS: GABAPENTIN 300 MG CAPSULE (FP) PO SCH ×3 (06:31→21:11)
[2017-04-03] MEDS: NICOTINE POLACRILEX 4 MG GUM BUC PRN ×2 (06:31→13:38)
[2017-04-03] MEDS: AMITRIPTYLINE HCL 25 MG TABLET (FP) PO SCH ×3 (06:31→21:11)
[2017-04-03] MEDS: PRENATAL VITAMINS W/ FOLIC ACID TABLET (FP) PO SCH (09:22)
[2017-04-03] MEDS: PARoxetine HCL 20 MG TABLET (FP) PO SCH (09:22)
[2017-04-03] MEDS: hydrOXYzine PAMOATE 50 MG CAPSULE (FP) PO PRN (09:22)
[2017-04-03] MEDS: NICOTINE 21 MG/24 HOURS TOPICAL PATCH TD SCH (09:23)
[2017-04-03] MEDS ORDERED: PT OWN MED DRAWER 7, Y5N ONE ×2 (12:18→22:10)
[2017-04-03] MEDS: traZODone HCL 50 MG TABLET (FP) PO SCH (21:11)
[2017-04-03] MEDS: THIAMINE HCL 100 MG TABLET (FP) PO SCH (21:11)
[2017-04-04] MEDS: AMITRIPTYLINE HCL 25 MG TABLET (FP) PO SCH ×3 (06:35→21:12)
[2017-04-04] MEDS: GABAPENTIN 300 MG CAPSULE (FP) PO SCH ×3 (06:35→21:12)
[2017-04-04] MEDS: NICOTINE POLACRILEX 4 MG GUM BUC PRN ×3 (06:36→13:07)
[2017-04-04] MEDS ORDERED: PT OWN MED DRAWER 7, Y5N ONE ×2 (08:14→22:59)
[2017-04-04] MEDS: MINERAL OIL/PETROLAT/WATER TOPICAL CREAM 113 GM JAR TP PRN (10:00)
[2017-04-04] MEDS: PARoxetine HCL 20 MG TABLET (FP) PO SCH (10:00)
[2017-04-04] MEDS: PRENATAL VITAMINS W/ FOLIC ACID TABLET (FP) PO SCH (10:00)
[2017-04-04] MEDS: NICOTINE 21 MG/24 HOURS TOPICAL PATCH TD SCH (10:02)
[2017-04-04] MEDS: traZODone HCL 50 MG TABLET (FP) PO SCH (21:12)
[2017-04-04] MEDS: THIAMINE HCL 100 MG TABLET (FP) PO SCH (21:12)
[2017-04-05] MEDS: AMITRIPTYLINE HCL 25 MG TABLET (FP) PO SCH ×3 (06:20→21:12)
[2017-04-05] MEDS: GABAPENTIN 300 MG CAPSULE (FP) PO SCH ×3 (06:20→21:12)
[2017-04-05] MEDS: NICOTINE POLACRILEX 4 MG GUM BUC PRN ×2 (06:21→09:51)
[2017-04-05 07:05] VITALS: BP 130/81; PULSE 72; TEMP 98
[2017-04-05] MEDS: PARoxetine HCL 20 MG TABLET (FP) PO SCH (09:50)
[2017-04-05] MEDS: NICOTINE 21 MG/24 HOURS TOPICAL PATCH TD SCH (09:50)
[2017-04-05] MEDS: PRENATAL VITAMINS W/ FOLIC ACID TABLET (FP) PO SCH (09:50)
--- NOTE | 2017-04-05 11:29 | PN ---
Psychiatric Progress Note Vital Signs: Vital Signs Period Temp Pulse Resp BP Sys/Chen Pulse Ox Last 24 Hr 98.0 F 72 18-18 130/81 Date of Session: 04/05/17 Chief Complaint:: Discharge visit HPI: Patient addressed Alcohol,Cannabis dependence comorbid with PTSD,Substance induced mood disorder. ROS: BA,Eczema. Current Medications: Active Medications Generic Name Dose Route Start Last Admin Trade Name Freq PRN Reason Stop Dose Admin Acetaminophen 650 mg 03/21/17 11:38 Tylenol - PO Q4H PRN FEVER OR PAIN Al Hydroxide/Mg Hydroxide 30 ml 03/21/17 11:38 Mylanta Oral Suspension - PO Q6H PRN DYSPEPSIA Amitriptyline HCl 25 mg 03/24/17 22:00 04/05/17 06:20 Elavil - PO 25 mg TID JONATHON Administration Colloidal Oatmeal 1 applic 03/21/17 11:40 04/02/17 16:06 Aveeno Soap - TP 1 bar DAILY PRN Administration HYGEINE Diphenhydramine HCl 50 mg 03/21/17 11:38 Benadryl - PO HSMR1 PRN FOR ITCHING Eucalyptus/Menthol/Phenol/Sorbitol 1 each 03/21/17 11:38 Cepastat Lozenge - MM Q4H PRN SORE THROAT Gabapentin 300 mg 03/24/17 22:00 04/05/17 06:20 Neurontin - PO 300 mg TID JONATHON Administration Guaifenesin 10 ml 03/21/17 11:38 Robitussin Dm - PO Q6H PRN COUGH Hydroxyzine Pamoate 50 mg 03/21/17 11:38 04/03/17 09:22 Vistaril - PO 50 mg Q4H PRN Administration AGITATION Ibuprofen 400 mg 03/21/17 11:38 Motrin - PO Q6H PRN PAIN Loperamide HCl 4 mg 03/21/17 11:38 Imodium - PO Q6H PRN DIARRHEA Magnesium Hydroxide 30 ml 03/21/17 11:38 Milk Of Magnesia - PO DAILY PRN CONSTIPATION Multi-Ingredient Lotion 1 applic 03/21/17 12:04 04/04/17 10:00 Eucerin (Small Jar) - TP 1 applic BID PRN Administration DRY SKIN Nicotine 21 mg 03/22/17 10:00 04/05/17 09:50 Nicoderm Patch - TD Not Given DAILY JONATHON Nicotine Polacrilex 4 mg 03/21/17 11:38 04/05/17 09:51 Nicorette Gum - BUC 4 mg Q2H PRN Administration NICOTINE REPLACEMENT RX Paroxetine HCl 20 mg 03/22/17 10:00 04/05/17 09:50 Paxil - PO 20 mg DAILY JONATHON Administration Multivit/Folic Acid/Iron 1 tab 03/22/17 10:00 04/05/17 09:50 Vitamins (Sjr) - PO 1 tab DAILY JONATHON Administration Pseudoephedrine/Triprolidine 1 combo 03/21/17 11:38 Actifed - PO TID PRN NASAL CONGESTION Thiamine HCl 100 mg 03/21/17 22:00 04/04/17 21:12 Vitamin B1 - PO 100 mg HS JONATHON Administration Trazodone HCl 150 mg 03/21/17 22:00 04/04/17 21:12 Desyrel - PO 150 mg HS JONATHON Administration Current Side Effect: No Lab tests ordered: No Lab tests reviewed: Yes Provider note:: Patient will complete this program tomorrow 04/06/17.She has met her treatment goals and will continue to address her issues on outpatient basis at [facility].Patient reports finding that Neurontin 300 mg tid,Paxil 20 mg po daily and Trazodone 150 mg po hs help to cope with mood instability, insomnia,depression.Scripts for 30 days provided. Patient identifies behaviors which contribute to relapse and ways,coping skills,support she can utilize to maintain recovery. Patient is stable for discharge tomorrow 04/06/17. Total face to face time:: 30 Mental Status Exam - Mental Status Exam Alert and Oriented to: Time, Place, Person Cognitive Function: Grossly Intact Patient Appearance: Well Groomed Mood: Hopeful, Euthymic Affect: Mood Congruent Patient Behavior: Cooperative Speech Pattern: Clear Voice Loudness: Normal Thought Process: Goal Oriented Thought Disorder: Not Present Hallucinations: Denies Suicidal Ideation: Denies Homicidal Ideation: Denies Insight/Judgement: Fair Sleep: Fair Appetite: Good Muscle strength/Tone: Normal Gait/Station: Normal Psychiatric Treatment Plan - Problem List (1) Marijuana dependence Current Visit: Yes (2) Nicotine dependence Current Visit: Yes (3) Substance induced mood disorder Current Visit: Yes (4) Asthma Current Visit: Yes Qualifiers: Asthma severity: mild intermittent Asthma complication type: uncomplicated Qualified Code(s): J45.20 - Mild intermittent asthma, uncomplicated (5) Eczema Current Visit: Yes Qualifiers: Eczema type: unspecified Qualified Code(s): L30.9 - Dermatitis, unspecified (6) Alcohol dependence Current Visit: Yes (7) PTSD (post-traumatic stress disorder) Current Visit: Yes
[2017-04-05] MEDS: traZODone HCL 50 MG TABLET (FP) PO SCH (21:12)
[2017-04-05] MEDS: THIAMINE HCL 100 MG TABLET (FP) PO SCH (21:12)
[2017-04-06] MEDS: GABAPENTIN 300 MG CAPSULE (FP) PO SCH (07:00)
[2017-04-06] MEDS: AMITRIPTYLINE HCL 25 MG TABLET (FP) PO SCH (07:00)
== END 2017-04-06 07:08 | disposition home or self-care (01) | DRG 772 ==
LOC: YASAS 11:18 → Y3E 11:20
PROVIDERS: ADMIT Psychiatry & Neurology Psychiatry; ATTEND Psychiatry & Neurology Psychiatry
PROC: HZ42ZZZ Group Counseling for Substance Abuse Treatment, Cognitive-Behavioral (ICD-10-PCS; principal; 2017-03-21)
DX: F10.20 Alcohol dependence, uncomplicated (principal); F12.20 Cannabis dependence, uncomplicated; F17.210 Nicotine dependence, cigarettes, uncomplicated; F19.24 Other psychoactive substance dependence with psychoactive substance-induced mood disorder; F43.10 Post-traumatic stress disorder, unspecified; J45.20 Mild intermittent asthma, uncomplicated; L30.9 Dermatitis, unspecified
CPT/HCPCS: 90732; G0009